=== PATIENT | male | born 1995 | race Hispanic/Latino ===

== ENCOUNTER 2023-05-04 12:40 | Emergency (ER) | payer SELFPAY ==
[2023-05-04 14:25] LABS: Bilirubin Neg (Negative); Blood, Urine Negative (Negative); Clarity Clear (Clear); Glucose, Urine (Dipstick) Normal (Negative); Ketone, Urine Negative (Negative); Leukocyte 100 (Negative); Nitrite Negative (Negative); Protein, Urine (Dipstick) 15 mg/dl (Neg-Trace)
[2023-05-04 14:53] LABS: CAUTI Indications for Culture Pelvic or flank pain; RBC/HPF None Seen HPF (0-3)
[2023-05-04 14:54] LABS: Bacteria/HPF 1+ HPF (None Seen)
[2023-05-04 14:56] LABS: Urine Culture Reflex Yes Yes
[2023-05-04] MEDS ORDERED: Lidocaine 1% PF 5 ML VIAL ONE (15:04)
[2023-05-04] MEDS ORDERED: cefTRIAXone (ROCEPHIN) 500 MG VIAL ONE (15:04)
[2023-05-05 12:21] LABS: Chlam.trachomatis by PCR,Urine DETECTED (NotDetected); GC N.gonorrhoeae PCR,UrineVOID Not Detected (NotDetected)
== END 2023-05-04 15:05 | disposition home or self-care (01) ==
LOC: CSHERS 12:40
DX: N39.0 Urinary tract infection, site not specified (principal)
CPT/HCPCS: 76870; 81001; 87086; 87491; 87591; 93976; 96372; J0696